=== PATIENT | male | born 1985 | race Caucasian/White ===

== ENCOUNTER 2023-06-15 08:49 | Emergency (ER) | payer SELFPAY ==
[2023-06-15 09:02] VITALS: RESP 18; TEMP 98; BMI 28.3
[2023-06-15] MEDS ORDERED: ACETAMINOPHEN 500 MG TABLET (FP) PO ONE (09:41)
[2023-06-15] MEDS ORDERED: DIPHTH,PERTUSS(ACELL),TET 0.5 ML DISP.SYRIN IM ONE ×2 (09:47→09:49)
[2023-06-15] MEDS ORDERED: ACETAMINOPHEN 325 MG TABLET (FP) ONE (09:49)
[2023-06-15 12:10] VITALS: BP 125/81; PULSE 78
== END 2023-06-15 12:31 | disposition home or self-care (01) ==
LOC: JER 08:49
PROC: 3E0234Z Introduction of Serum, Toxoid and Vaccine into Muscle, Percutaneous Approach (ICD-10-PCS; principal; 2023-06-15)
DX: S00.01XA Abrasion of scalp, initial encounter (principal); M25.562 Pain in left knee; V87.7XXA Person injured in collision between other specified motor vehicles (traffic), initial encounter; Y93.01 Activity, walking, marching and hiking; Y92.488 Other paved roadways as the place of occurrence of the external cause
CPT/HCPCS: 70450-TC; 72125-TC; 73552-TC-LT-FY; 73562-TC-LT-FY; 73590-TC-LT-FY; 90715; 99284-25